=== PATIENT | male | born 1950 | race Caucasian/White ===

== ENCOUNTER 2024-08-07 10:17 | Outpatient (REF) | payer MEDICARE, SELFPAY | END 2024-08-07 10:18 | disposition home or self-care (01) | LOC: HO.BBR 10:17 | PROVIDERS: PCP Family Medicine; Visit Provider Internal Medicine Hematology | DX: D75.1 Secondary polycythemia (principal) | CPT/HCPCS: 85014; 99195 ==

== ENCOUNTER 2024-08-21 09:38 | Outpatient (REF) | payer MEDICARE, SELFPAY | END 2024-08-21 09:39 | disposition home or self-care (01) | LOC: HO.BBR 09:38 | PROVIDERS: PCP Family Medicine; Visit Provider Internal Medicine Hematology | DX: D75.1 Secondary polycythemia (principal) | CPT/HCPCS: 85014; 85018; 99195 ==

== ENCOUNTER 2024-09-07 12:41 | Outpatient (REF) | payer MEDICARE, SELFPAY | END 2024-09-07 12:42 | disposition home or self-care (01) | LOC: HO.BBR 12:41 | PROVIDERS: PCP Family Medicine; Visit Provider Hospitalist | DX: D75.1 Secondary polycythemia (principal) | CPT/HCPCS: 85014; 85018; 99195 ==